=== PATIENT | male | born 1965 | race Caucasian/White ===

== ENCOUNTER 2023-07-31 10:06 | Emergency (ER) | payer OTHER, SELFPAY ==
[2023-07-31 10:07] VITALS: BP 143/88; PULSE 77; RESP 14; TEMP 36.1; O2SAT 100
[2023-07-31 10:10] VITALS: BP 143/88; PULSE 77; RESP 14; TEMP 36.1; O2SAT 97; BMI 30.7
--- NOTE | 2023-07-31 10:37 | CT_ITS ---
STUDY: CT ABDOMEN AND PELVIS WITH CONTRAST REASON FOR EXAM: Male, 58 years old. Abdominal pain -- IV PO Contrast RADIATION DOSAGE (If Supplied By Facility): CTDIvol = ( 15.74 ) mGy, DLP = ( 1146.78 ) mGycm TECHNIQUE: Transaxial images were obtained from the dome of the diaphragm to the symphysis pubis without oral contrast. Oral and amp; IV Gastrografin and amp; 100mL Isovue-300 was administered. Sagittal and coronal images were reconstructed. Individualized dose optimization techniques were used for this CT. COMPARISON: None. FINDINGS: Minimal degree of right basilar atelectasis. The visualized portions of the heart are within normal limits. There is decreased attenuation of the liver consistent with mild degree of steatosis. Normal gallbladder and extrahepatic biliary system. Normal spleen. Normal pancreas. Normal bilateral adrenal glands. Normal right kidney. Normal left kidney. There is a small hiatal hernia. There is evidence of a circumferential wall thickening of the distal ileum as well as the terminal ileum. Minimal increased markings are seen in the surrounding fat. This may represent localized inflammatory bowel disease. There are multiple colonic diverticula consistent with diverticulosis. Moderate amount of fecal material is seen in the right hemicolon. The patient is status post appendectomy. There is scattered atherosclerotic calcification of the abdominal aorta, without a demonstrated aneurysm. Normal inferior vena cava. Normal retroperitoneum. Normal urinary bladder. There is evidence of prior anterior abdominal wall hernia repair with a mesh. There are degenerative changes of the visualized lumbar spine. CT/Abdomen/Pelvis WITH Contrast IMPRESSION: Mild degree of fatty infiltration of the liver. Diffuse circumferential wall thickening with mild increased markings in the surrounding fat involving the distal ileum and terminal ileum. Localized ileitis should be ruled out. Sigmoid diverticulosis. Electronically Signed: Romulo Lopez MD at 12:38 EDT ,
--- NOTE | 2023-07-31 10:39 | EKG12_ITS ---
Test Reason : ABD PAIN Blood Pressure : / mmHG Vent. Rate : 070 BPM Atrial Rate : 070 BPM P-R Int : 172 ms QRS Dur : 086 ms QT Int : 382 ms P-R-T Axes : 020 -06 026 degrees QTc Int : 412 ms Normal sinus rhythm Normal ECG Confirmed by NELIA KOHLER, SHEILA ([id number]), assistant editor BRONSON CARBAJAL ([id number]) on 08/01/2023 9:32:50 AM Referred By: Confirmed By:SHEILA PICKENS MD
--- NOTE | 2023-07-31 10:39 | ED.VIS.GI ---
HPI HPI - GI History of Present Illness Chief Complaint: Abd Pain Detail of Chief Complaint: Abdominal pain Informant: patient and spouse/S.O. Narrative Narrative: Patient presents with abdominal pain that has had off and on for the last 5 days. Describes pain in the upper abdomen that feels like a knot in his stomach that then counter relieves and goes away after about 30 seconds. Happens frequently throughout the day. He had 1 episode of vomiting earlier today. Patient also had diarrhea a few days ago that seems to be improved but still having some loose stool. Patient has history of appendectomy and hernia with mesh repair 6 years ago. Patient denies urinary symptoms. He has had no fever. PFSH PFSH Home Medications hydrocodone-acetaminophen 5-325mg 5mg-325mg 1 tab PO Q4H PRN PRN Pain 2 days #10 TABLETS 07/31/23 [Rx Last Taken Unknown] Allergy/AdvReac Type Severity Reaction Status Date / Time amoxicillin [From Augmentin] Allergy Severe Other Verified 07/31/23 10:09 clavulanic acid Allergy Severe Other Verified 07/31/23 10:09 [From Augmentin] Sulfa (Sulfonamide Allergy Severe BLISTERS Verified 07/31/23 10:09 Antibiotics) gabapentin AdvReac Severe HALLUCINATI Verified 07/31/23 10:09 ONS Social History Smoking Status: Never smoker ROS ROS ED Review of Systems ROS Unobtainable: other Constitutional Constitutional ED: Reports lethargy; Denies chills, fever(s), sweats or weight loss Eyes Eyes: Denies blurry vision, change in vision or diplopia ENT ENT ED: Denies rhinorrhea or sore throat Cardiovascular Cardiovascular: Denies chest pain, orthopnea or racing heartbeat Respiratory/Chest Respiratory/Chest: Denies cough, dyspnea, dyspnea on exertion, orthopnea or sputum Gastrointestinal Gastrointestinal: Reports abdominal pain, diarrhea, nausea and vomiting Genitourinary Genitourinary ED: Denies dysuria, hematuria or urinary frequency Musculoskeletal Musculoskeletal: Denies arthralgias, back pain, myalgias or neck pain Integumentary Denies abscess, Abrasions or rash Neurologic Neurologic: Denies headache(s) or weakness Psychiatric Psychiatric: Denies anxiety, depression or suicidal thoughts Endocrine Endocrinology: Denies polydipsia, polyphagia or polyuria Hematologic/Lymphatic Hematologic/Lymphatic: Denies easy bleeding, easy bruising or lymphadenopathy Allergic/Immunologic Allergic/Immunologic ED: Denies mouth swelling, tongue swelling or urticaria EXAM Physical Exam Const Vital Signs: 07/31/23 10:10 07/31/23 10:07 07/31/23 12:07 Temperature 96.9 F L 96.9 F L Temperature Source Temporal Temporal Pulse Rate 77 77 64 Respiratory Rate 14 14 18 Blood Pressure 143/88 H 143/88 H 139/76 H Blood Pressure Mean 106 106 97 Pulse Ox 97 100 99 Oxygen Delivery Method Room Air Room Air Room Air Positive well nourished and well developed General Appearance ED: well developed and NAD HEENT Reports TM's clear and moist mucous membranes normocephalic and atraumatic; Negative for trauma or tenderness Tympanic Membrane ED: Yes TM's clear Eyes PERRL and EOMs intact bilaterally General Eye ED: Negative for pale conjunctiva or scleral icterus Neck no lymphadenopathy, supple and no JVD General: Negative for tenderness Chest Wall inspection of chest normal and palpation of chest normal Chest: Negative for tenderness Resp normal respiratory effort and clear to auscultation bilaterally Effort and Inspection: Negative for respiratory distress or pain with movement Auscultation: Negative for rhonchi, wheezes or diminished lung sounds Cardio regular rate, regular rhythm, S1 normal heart sound, S2 normal heart sound and no murmurs Peripheral Pulses: pulses 2+ throughout GI normal to inspection, nondistended, normoactive bowel sounds, soft to palpation, non-tender and no masses GI Narrative: Tenderness palpation over the epigastric region and left lower quadrant as well as suprapubic region. There are some guarding. There is no rebound, rigidity, or peritoneal signs. No discoloration to the abdominal wall. Back/Spine no CVA tenderness and no thoracic nor lumbar tenderness Extremity normal to inspection General Extremety ED: Negative for edema General Extremity: Negative for edema Neuro oriented x3, CN's II-XII intact bilaterally, no sensory deficits noted and gait normal Sensorium / Orientation: awake, alert, oriented to person, oriented to place and oriented to time Motor Exam: strength 5/5 throughout and strength abnormal Psych mental status grossly normal Skin no rashes or lesions noted and no wounds MDM MDM MDM Narrative Medical decision making narrative: Patient presents with abdominal pain that is worse with movement at times. He had 1 episode of vomiting and several episodes of diarrhea over the last several days. Food does not seem to affect his pain at all. Movement seems to make it worse. Describes the pain is more in the epigastric region. On exam he also had some tenderness over the suprapubic region and left lower quadrant. Patient also had tenderness in the right lower quadrant. IV line established. CBC with differential obtained for white count of 5.2 with hemoglobin 14.9 and platelet count of 159. Chemistries unremarkable. Lactate normal 1.0. LFTs normal. Lipase normal at 43. Urinalysis was normal. CT scan of the abdomen pelvis with IV and p.o. contrast ordered showed diffuse circumferential wall thickening of the terminal ileum and distal ileum. Localized ileitis should be ruled out. Discussed case with general surgeon on-call Dr. Meza who did not feel antibiotics were indicated given that he has no fever and no elevated white blood cell count. Recommended follow-up with his office or gastroenterology for need for further evaluation and possible colonoscopy. Discussed case and results with patient and his . Will discharge to home with prescription for few [place] for pain. He will be given referral to Dr. Meza and Dr. Kaminski. Lab Data Attestation: I reviewed the patient's lab results. Labs: Laboratory Results - last 24 hr 07/31/23 07/31/23 10:25 10:58 WBC 5.2 RBC 4.75 Hgb 14.9 Hct 43.9 MCV 92.4 MCH 31.4 MCHC 33.9 RDW Std Deviation 41.1 RDW Coeff of [place] 12.1 Plt Count 159 MPV 11.1 Immature Gran % (Auto) 0.200 Neut % (Auto) 53.5 Lymph % (Auto) 25.1 [place] % (Auto) 18.1 H Eos % (Auto) 2.7 Baso % (Auto) 0.4 Absolute Neuts (auto) 2.8 Absolute Lymphs (auto) 1.30 Nucleated RBC % 0 Sodium 140 Potassium 3.8 Chloride 105 Carbon Dioxide 28.0 Anion Gap 7 BUN 15 Creatinine 1.13 Estim Creat Clear Calc 76.81 Est GFR (MDRD) Af Amer 86 Est GFR (MDRD) Non-Af 71 BUN/Creatinine Ratio 13.3 Glucose 103 Lactic Acid 1.0 Calcium 8.2 L Total Bilirubin 0.40 AST 22 ALT 25 Alkaline Phosphatase 41 L Troponin I High Sens 5 C-React Prot Ext Range 11.00 H Total Protein 6.9 Albumin 3.4 Globulin 3.5 Albumin/Globulin Ratio 1.0 Lipase 43 Urine Color Yellow Urine Clarity Clear Urine pH 6.5 Ur Specific [place] 1.015 Urine Protein 15 H Urine Glucose (UA) Normal Urine Ketones Negative Urine Occult Blood 10 H Urine Nitrite Negative Urine Bilirubin Negative Urine Urobilinogen Normal Ur Leukocyte Esterase 25 H Urine RBC 0-5 SEEN Urine WBC 0-5 SEEN Ur Squamous Epith Cells 0 SEEN Urine Bacteria 0 SEEN Urine Mucus 0 SEEN Radiography Diagnostic Testing: Clinical Impression(s) from Imaging Studies Abdomen/Pelvis CT 07/31/23 10:37 IMPRESSION: Mild degree of fatty infiltration of the liver. Diffuse circumferential wall thickening with mild increased markings in the surrounding fat involving the distal ileum and terminal ileum. Localized ileitis should be ruled out. Sigmoid diverticulosis. Electronically Signed: Romulo Lopez MD at 12:38 EDT , EKG Initial EKG: Attestation: I personally reviewed and interpreted this EKG as follows: Comments: Sinus rhythm with rate of 70 bpm with no acute ST segment changes Discharge Plan Triage Chief Complaint: Abd Pain ED Provider: Sulma Diana Dx/Rx/DC Orders Clinical Impression: Ileitis Instructions: ED Ulcerative Colitis, ED Abdominal Pain Unkn Cause Male... Prescriptions: New hydrocodone-acetaminophen [hydrocodone-acetaminophen] 5-325 mg tablet 1 tab PO Q4H PRN PRN (Reason: Pain) 2 Days Qty: 10 0RF Primary Care Provider: Liliya De Jesus Referrals: Charly Meza MD [Med Staff - Active Staff] - 3-5 Days Eligio Kaminski DO [Med Staff - Active Staff] - 3-5 Days Liliya De Jesus MD [Primary Care Provider] - Disposition Disposition: Home, Self Care
[2023-07-31 10:56] LABS: Absolute Neutrophil Count 2.8 X10^3/uL (2.0-7.7); Basophil# 0.02 X10^3/uL; Basophil% 0.4 % (0-1); Eosinophil# 0.14 X10^3/uL; Eosinophils% 2.7 % (0-5); Hematocrit 43.9 % (40-54); Hemoglobin 14.9 g/dL (13.0-16.5); Lymphocyte % 25.1 % (19-41); Mean Corp Hgb Conc 33.9 g/dL (32-36); Mean Corpuscular Hgb 31.4 pg (27.0-32.0); Mean Corpuscular Volume 92.4 fL (80-94); Mean Platelet Vol. 11.1 fl (6.2-12.0); Monocyte# 0.94 X10^3/uL; Monocyte% 18.1 % (0-10); NRBC Flagged by Analyzer 0 % (0-5); Neutrophil # 2.77 X10^3/uL (2.7-7.7); Neutrophil % 53.5 % (47-70); Platelet Count 159 K/mm3 (150-450); RBC Distribution Width CV 12.1 % (11.6-14.6); RBC Distribution Width SD 41.1 fl (35.1-43.9); Red Blood Count 4.75 M/mm3 (4.6-6.2); White Blood Count 5.2 K/mm3 (4.4-11.0)
[2023-07-31 11:03] LABS: Bacteria 0 SEEN /hpf (None Seen); Mucous, Urine 0 SEEN /hpf (<or=2+); Squamous Epithelial Cells - UA 0 SEEN /hpf (0-5)
[2023-07-31 11:08] LABS: Color, Urine Yellow (Yellow); Glucose, Dipstick Normal (Normal); Ketone-Dipstick Negative (Negative); Leukocyte Esterase-Dipstick 25 /ul (Negative); Nitrite-Dipstick Negative (Negative); Occult Blood-Urine 10 /ul (Negative); Protein-Dipstick 15 mg/dl (Negative); Specific Gravity, Urine 1.015 (1.002-1.030); Urine Bilirubin Dipstick Negative (Negative); Urine Clarity Clear (Clear); Urine Urobilinogen Normal (Normal); Urine pH 6.5 (5.0 - 8.0)
[2023-07-31 11:12] LABS: AST(SGOT) 22 U/L (15-37); Alanine Aminotransfer ALT/SGPT 25 U/L (16-61); Albumin, Serum 3.4 g/dL (3.2-5.0); Alkaline Phosphatase 41 U/L (45-117); Anion Gap 7 (5-15); BUN 15 mg/dL (7-18); BUN/Creat Ratio 13.3 RATIO (10-20); Calcium,Total 8.2 mg/dL (8.5-10.1); Chloride 105 mmol/L (98-107); Creatinine, Serum 1.13 mg/dL (0.70-1.30); EST Glomerular Filtration Rate 71 mL/min (>60); Est Glom Filt Rate - Afr Amer 86 mL/min (>60); Estimated Creatinine Clearance 76.81 ml/min; Globulin 3.5 g/dL (2.2-4.2); Glucose 103 mg/dL (74-106); Lipase 43 U/L (13-75); Potassium 3.8 mmol/L (3.5-5.1); Protein, Total 6.9 g/dL (6.4-8.2); Sodium Level 140 mmol/L (136-145); Troponin-I HS 5 pg/mL (3.0-78.0)
[2023-07-31] MEDS: 0.9% Normal Saline (1000mL) 1,000 ML 125 ML IV (11:15)
[2023-07-31 11:18] LABS: Red Blood Cells-Urine 0-5 SEEN /hpf (0-5); White Blood Cells 0-5 SEEN /hpf (0-5)
[2023-07-31 12:07] VITALS: BP 139/76; PULSE 64; RESP 18; O2SAT 99
[2023-07-31 13:29] LABS: Erythrocyte Sedimentation Rate 18 mm/hr (0-20)
[2023-07-31 13:51] VITALS: BP 129/87; PULSE 66; RESP 18; TEMP 36.1; O2SAT 93
== END 2023-07-31 13:52 | disposition home or self-care (01) ==
PROVIDERS: Emergency Provider Emergency Medicine; PCP Internal Medicine; Visit Provider Emergency Medicine
DX: K52.9 Noninfective gastroenteritis and colitis, unspecified (principal); Z90.49 Acquired absence of other specified parts of digestive tract
CPT/HCPCS: 74177; 80053; 81001; 83605; 83690; 84484; 85025; 85652; 86140; 93005; 96360; 96361; 99283; J7030; Q9967; A4216